=== PATIENT | female | born 1995 | race African-American/Black ===

== ENCOUNTER 2018-11-29 10:34 | Emergency (ER) | payer SELFPAY ==
[2018-11-29 11:12] LABS: Absolute Lymphocytes (CBC) 1.3 K/uL (0.7-4.9); Absolute Monocytes 0.3 K/uL (0.1-1.3); Absolute Neutrophil 5.4 K/uL (1.8-8.0); Basophils % 1.8 % (0-1.3); Eosinophils % 0.1 % (0-4.4); Lymphocytes % 18.2 % (15.3-44.8); MPV 8.7 fL (7.6-11.3); Monocytes % 4.2 % (3.3-12.3); RBC Red Blood Cell Count 4.21 M/uL (3.86-4.86)
[2018-11-29] MEDS ORDERED: NA CHLORIDE 0.9% 1,000 ML ONE ×2 (11:22→13:12)
[2018-11-29 11:28] LABS: ALT/SGPT 15 U/L (12-78); AST/SGOT 14 U/L (15-37); Albumin 4.1 g/dL (3.4-5.0); Alkaline Phosphatase 66 U/L (45-117); BUN Blood Urea Nitrogen 6 mg/dL (7-18); Bicarbonate 22 mmol/L (21-32); Bilirubin Direct 0.1 mg/dL (0-0.2); Bilirubin Total 0.3 mg/dL (0.2-1.0); Glucose Level 96 mg/dL (74-106); Lipase 142 U/L (73-393); Potassium 3.4 mmol/L (3.5-5.1); Protein, Total 7.6 g/dL (6.4-8.2); Sodium Level 144 mmol/L (136-145)
[2018-11-29] MEDS ORDERED: ONDANSETRON 4 MG/2 ML VIAL ONE ×3 (11:50→15:19)
[2018-11-29] MEDS ORDERED: MORPHINE 4 MG/ML SYR ONE ×2 (11:50→13:12)
[2018-11-29] MEDS ORDERED: NS KCL 20MEQ 1,000 ML IV ONE (12:44)
[2018-11-29 12:58] LABS: Urine Blood TRACE (NEG); Urine Glucose NEGATIVE (NEG); Urine Protein 2+ (NEG); Urine Specific Gravity 1.025 (1.005-1.030)
[2018-11-29] MEDS ORDERED: CEFTRIAXONE/SWI 1gm 1 GM/10 ML SYR ONE (13:12)
--- NOTE | 2018-11-29 13:18 | RAD REPORT ---
EXAM DESCRIPTION: CT - Stone Protocol - 11/29/2018 1:05 pm CLINICAL HISTORY: Flank pain. ABD PAIN COMPARISON: No comparisons TECHNIQUE: Axial images were obtained without oral or IV contrast. Lack of contrast limits solid org an and vascular assessment. The [id number] spans the entirety of the system partially obscuring uppermost abdomen and lung bases. Coronal reformatted images were obtained and reviewed. All CT scans are performed using dose optimization technique as appropriate and may include automated exposure control or mA/KV adjustment according to patient size. FINDINGS: The lower lung tao are clear. Imaged portions of the liver and spleen show no suspicious findings on non-contrast imaging. The panc reas and adrenal glands are normal. No pathologic lymphadenopathy in the abdomen or pelvis. 4 mm oblong calculus is noted at the right UVJ resulting mild right hydronephrosis and hydroureter. N o left-sided calculus or hydronephrosis seen. No bowel obstruction, free air, free fluid or abscess. Normal appendix noted. No significant bony abnormality. IMPRESSION: 4 mm oblong calculus right UVJ resulting in mild right hydronephrosis and hydroureter.
--- NOTE | 2018-11-29 13:19 | RAD REPORT ---
EXAM DESCRIPTION: US - Abdomen Exam Limited - 11/29/2018 12:34 pm CLINICAL HISTORY: ABD PAIN COMPARISON: No comparisons FINDINGS: The gallbladder demonstrates no gallstones. No pericholecystic fluid or gallbladder wall t hickening. The common bile duct is normal measuring 3 mm. The liver demonstrates no findings of intrahepatic biliary dilatation. Mild right hydronephrosis inci dentally noted. IMPRESSION: Negative gallbladder/ biliary tree findings. Mild right hydronephrosis.
--- NOTE | 2018-11-29 13:29 | ER ---
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 Transition of care: patient was not received from another setting of care. Onset of symptoms was November 29, 2018. Risk Assessment: Do you want to hurt yourself or someone else? Patient reports no desire to harm self or others. Initial Sepsis Screen: Does the patient meet any 2 criteria? No. Patient's initial sepsis screen is negative. Does the patient have a suspected source of infection? No. Patient's initial sepsis screen is negative. Care prior to arrival: Medication(s) given: zofran 4 mg, Toradol 30 mg. 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 - Social history:: Smoking status: Patient/guardian denies using tobacco. - Ebola Screening: : Patient negative for fever greater than or equal to 101.5 degrees Fahrenheit, and additional compatible Ebola Virus Disease symptoms Patient denies exposure to infectious person Patient denies travel to an Ebola-affected area in the 21 days before illness onset No symptoms or risks identified at this time. - Family history:: not pertinent. Screenin:40 Abuse screen: Denies threats or abuse. Nutritional screening: No deficits noted. aa5 Tuberculosis screening: No symptoms or risk factors identified. Fall Risk None identified. Assessment: 10:42 General: Appears uncomfortable, Behavior is cooperative, restless. Pain: Complains of aa5 pain in right upper quadrant Pain does not radiate. . Pain currently is 10 out of 10 on a pain scale. Quality of pain is described as sharp, Pain began this morning Is continuous. Neuro: Level of Consciousness is awake, alert, obeys commands, Oriented to person, place, time, situation. Cardiovascular: Heart tones S1 S2 present Rhythm is regular. Respiratory: Airway is patent Respiratory effort is even, unlabored, Respiratory pattern is regular, symmetrical. GI: Abdomen is round non-distended, Bowel sounds present X 4 quads. Abd is soft X 4 quads Reports nausea, vomiting, Patient currently denies diarrhea. : No signs and/or symptoms were reported regarding the genitourinary system. Denies burning with urination, inability to void. EENT: No signs and/or symptoms were reported regarding the EENT system. Derm: Skin is dry, Skin is normal, Skin temperature is warm. Musculoskeletal: Range of motion: intact in all extremities. 11:15 Reassessment: Pt assisted to restroom, pt unable to provide urine specimen at this aa5 time. . 11:37 General: Appears uncomfortable. Neuro: Level of Consciousness is awake, alert, obeys aa5 commands, Oriented to person, place, time, situation. Derm: Skin is dry, Skin is normal, Skin temperature is warm. 12:15 Reassessment: Patient and/or family updated on plan of care and expected duration. Pain aa5 level reassessed. Awaiting CT and US. Pt states "I am still hurting". Pt reports pain has improved to 5/10 on a pain scale. . General: Appears comfortable. Neuro: Level of Consciousness is awake, alert, obeys commands, Oriented to person, place, time, situation. Respiratory: Airway is patent Respiratory effort is even, unlabored, Respiratory pattern is regular, symmetrical. Derm: Skin is dry, Skin is normal, Skin temperature is warm. 12:59 Reassessment: Pt taken to CT via wheelchair. . aa5 13:13 Neuro: Level of Consciousness is awake, alert, obeys commands, Oriented to person, aa5 place, time, situation. Respiratory: Airway is patent Respiratory effort is even, unlabored, Respiratory pattern is regular, symmetrical. Derm: Skin is dry, Skin is normal, Skin temperature is warm. 14:15 Reassessment: Patient states symptoms have not improved. Neuro: Level of Consciousness aa5 is awake, alert, obeys commands, Oriented to person, place, time, situation. Respiratory: Airway is patent Respiratory effort is even, unlabored, Respiratory pattern is regular, symmetrical. Derm: Skin is dry, Skin is normal, Skin temperature is warm. 15:05 Reassessment: Pt ambulated to restroom . aa5 15:22 General: Appears uncomfortable. Neuro: Level of Consciousness is awake, alert, obeys aa5 commands, Oriented to person, place, time, situation. Respiratory: Airway is patent Respiratory effort is even, unlabored, Respiratory pattern is regular, symmetrical. Derm: Skin is dry, Skin is normal, Skin temperature is warm. 16:00 Neuro: Level of Consciousness is awake, alert, obeys commands, Oriented to person, aa5 place, time, situation. Respiratory: Airway is patent Respiratory effort is even, unlabored, Respiratory pattern is regular, symmetrical. Derm: Skin is dry, Skin is normal, Skin temperature is warm. 16:00 Reassessment: Patient denies pain at this time. Patient states feeling better. aa5 Vital Signs: 10:40 BP 107 / 76; Pulse 75; Resp 18; Temp 98.3(O); Pulse Ox 100% on R/A; Weight 77.11 kg; em Height 5 ft. 3 in. (160.02 cm); Pain 10/10; 11:37 BP 122 / 98; Pulse 75; Resp 18 S; Pulse Ox 100% on R/A; aa5 13:13 BP 122 / 69; Pulse 77; Resp 16 S; Pulse Ox 98% on R/A; Pain 8/10; aa5 15:20 BP 121 / 66; Pulse 70; Resp 16 S; Pulse Ox 98% on R/A; Pain 10/10; aa5 10:40 Body Mass Index 30.11 (77.11 kg, 160.02 cm) em ED Course: 10:38 Patient arrived in ED. em 10:39 Kalyn Burch, RN is Primary Nurse. aa5 10:39 Triage completed. aa5 10:40 Arm band placed on. em 10:40 Patient has correct armband on for positive identification. Placed in gown. Bed in low aa5 position. Call light in reach. Side rails up X 1. Adult w/ patient. 10:50 Luis Eduardo Friedman MD is Attending Physician. getachew 11:05 Initial lab(s) drawn, by me, sent to lab. Maintain EMS IV. Dressing intact. Good blood aa5 return noted. Site clean \\T\\ dry. Gauge \\T\\ site: 20 G to R AC. 11:34 Radiology exam delayed due to test not completed at this time. az 12:35 US Abdomen Limited In Process Unspecified. EDMS 12:37 Ultrasound completed. Patient tolerated well. Notified ED Physician leonel. sg3 12:39 Initial lab(s) drawn, by me, sent to lab. jp3 12:40 Test, Serum Sent. jp3 12:50 Urine collected: clean catch specimen, clear, ryann colored, Amount Voided: 40mL. jp3 13:06 CT Stone Protocol In Process Unspecified. EDMS 13:08 CT completed. Patient tolerated procedure well. Patient moved back from CT. az 16:00 No provider procedures requiring assistance completed. IV discontinued, intact, aa5 bleeding controlled, No redness/swelling at site. Pressure dressing applied. Administered Medications: 11:37 Drug: NS 0.9% 1000 ml Route: IV; Rate: 1 bolus; Site: right antecubital; aa5 12:30 Follow up: IV Status: Completed infusion; IV Intake: 1000ml aa5 11:37 Drug: Zofran 4 mg Route: IVP; Site: right antecubital; aa5 11:45 Follow up: Response: No adverse reaction aa5 11:39 Drug: morphine 4 mg Route: IVP; Site: right antecubital; aa5 11:45 Follow up: Response: No adverse reaction aa5 13:13 Drug: NS 0.9% with KCl 20 mEq/L 1000 ml Route: IV; Rate: 500 ml/hr; Site: right aa5 antecubital; 14:15 Follow up: IV Status: Completed infusion; IV Intake: 1000ml aa5 13:13 Drug: NS 0.9% 1000 ml Route: IV; Rate: 1 bolus; Site: right antecubital; aa5 14:15 Follow up: IV Status: Completed infusion; IV Intake: 1000ml aa5 13:13 Drug: Zofran 4 mg Route: IVP; Site: right antecubital; aa5 13:20 Follow up: Response: No adverse reaction aa5 13:15 Drug: Rocephin - (cefTRIAXone) 1 grams {Note: administered IVP per pharmacy protocol at aa this time .} Route: IVPB; Infused Over: 30 mins; Site: right antecubital; 13:20 Follow up: Response: No adverse reaction aa5 13:17 Drug: morphine 4 mg Route: IVP; Site: right antecubital; aa5 13:20 Follow up: Response: No adverse reaction aa5 14:15 Drug: LevaQUIN 500 mg Volume: 100 ml; Route: IVPB; Infused Over: 60 mins; Site: right em antecubital; 16:15 Follow up: Response: No adverse reaction; IV Status: Completed infusion aa5 14:15 Drug: Flomax 0.4 mg Route: PO; em 15:15 Follow up: Response: No adverse reaction aa5 15:20 Drug: Zofran 4 mg Route: IVP; Site: right antecubital; aa5 15:45 Follow up: Response: No adverse reaction aa5 15:22 Drug: Dilaudid 1 mg Route: IVP; Site: right antecubital; aa5 15:45 Follow up: Response: No adverse reaction; Marked relief of symptoms; Pain is decreased aa5 Intake: 12:30 IV: 1000ml; Total: 1000ml. aa5 14:15 IV: 1000ml; Total: 2000ml. aa5 14:15 IV: 1000ml; Total: 3000ml. aa5 Outcome: 13:28 Discharge ordered by . [facility] 16:00 Discharged to home ambulatory, with family. [facility] 16:00 Condition: improved 16:00 Discharge instructions given to patient, Instructed on discharge instructions, follow up and referral plans. medication usage, Demonstrated understanding of instructions, follow-up care, medications, Prescriptions given X 4. 16:05 Patient left the ED. aa5 Addendum: 12/02/2018 11:08 Addendum: Culture Results: Positive urine culture. No further action required. Bacteria s s sensitive to prescribed antibiotic. Signatures: Dispatcher [employer] Luis Eduardo Rg MD MD cha Munoz, Edgar, CAN CAPPER CAN CAPPER em Kalyn Burch RN RN aa5 Lety Ritchie RN RN ss Godinez, Sarah 3 Hemant Yang jp3 Amber Weinberg Corrections: (The following items were deleted from the chart) 11/29 11:45 10:42 : No signs and/or symptoms were reported regarding the genitourinary system. aa5aa5
--- NOTE | 2018-11-29 13:29 | EDPHYS ---
Physician Documentation [facility] Name: Aarti Villegas Age: 23 yrs Sex: Female : 1995 Arrival Date: 11/29/2018 Time: 10:38 Bed 13 Private MD: ED Physician Luis Eduardo Friedman HPI: 11/29 11:31 This 23 yrs old Black Female presents to ER via EMS with complaints of Abdominal Pain. getachew 11:31 The patient presents with abdominal pain in the upper abdomen, in the lower abdomen, in getachew the right upper quadrant, right lower quadrant. Onset: The symptoms/episode began/occurred just prior to arrival, this morning. The patient presents to the emergency department with nausea, vomiting, that is continuous. Onset: The symptoms/episode began/occurred just prior to arrival, this morning. Possible causes: unknown. The symptoms are aggravated by nothing. The symptoms are alleviated by nothing. Associated signs and symptoms: The patient has no apparent associated signs or symptoms. 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 - Social history:: Smoking status: Patient/guardian denies using tobacco. - Ebola Screening: : Patient negative for fever greater than or equal to 101.5 degrees Fahrenheit, and additional compatible Ebola Virus Disease symptoms Patient denies exposure to infectious person Patient denies travel to an Ebola-affected area in the 21 days before illness onset No symptoms or risks identified at this time. - Family history:: not pertinent. ROS: 11:31 Constitutional: Negative for fever, chills, and weight loss, Eyes: Negative for injury, getachew pain, redness, and discharge, ENT: Negative for injury, pain, and discharge, Neck: Negative for injury, pain, and swelling, Cardiovascular: Negative for chest pain, palpitations, and edema, Respiratory: Negative for shortness of breath, cough, wheezing, and pleuritic chest pain, Back: Negative for injury and pain, : Negative for injury, bleeding, discharge, and swelling, MS/Extremity: Negative for injury and deformity, Skin: Negative for injury, rash, and discoloration, Neuro: Negative for headache, weakness, numbness, tingling, and seizure, Psych: Negative for depression, anxiety, suicide ideation, homicidal ideation, and hallucinations, Allergy/Immunology: Negative for hives, rash, and allergies, Endocrine: Negative for neck swelling, polydipsia, polyuria, polyphagia, and marked weight changes, Hematologic/Lymphatic: Negative for swollen nodes, abnormal bleeding, and unusual bruising. 11:31 Abdomen/GI: Positive for abdominal pain, abdominal cramps, of the suprapubic area, anterior aspect of right lateral abdomen, right upper quadrant and right lower quadrant. Exam: 11:31 Constitutional: This is a well developed, well nourished patient who is awake, alert, getachew and in no acute distress. Head/Face: Normocephalic, atraumatic. Eyes: Pupils equal round and reactive to light, extra-ocular motions intact. Lids and lashes normal. Conjunctiva and sclera are non-icteric and not injected. Cornea within normal limits. Periorbital areas with no swelling, redness, or edema. ENT: Nares patent. No nasal discharge, no septal abnormalities noted. Tympanic membranes are normal and external auditory canals are clear. Oropharynx with no redness, swelling, or masses, exudates, or evidence of obstruction, uvula midline. Mucous membranes moist. Neck: Trachea midline, no thyromegaly or masses palpated, and no cervical lymphadenopathy. Supple, full range of motion without nuchal rigidity, or vertebral point tenderness. No Meningismus. Chest/axilla: Normal chest wall appearance and motion. Nontender with no deformity. No lesions are appreciated. Cardiovascular: Regular rate and rhythm with a normal S1 and S2. No gallops, murmurs, or rubs. Normal PMI, no JVD. No pulse deficits. Respiratory: Lungs have equal breath sounds bilaterally, clear to auscultation and percussion. No rales, rhonchi or wheezes noted. No increased work of breathing, no retractions or nasal flaring. Back: No spinal tenderness. No costovertebral tenderness. Full range of motion. Female : Normal external genitalia. Skin: Warm, dry with normal turgor. Normal color with no rashes, no lesions, and no evidence of cellulitis. MS/ Extremity: Pulses equal, no cyanosis. Neurovascular intact. Full, normal range of motion. Neuro: Awake and alert, GCS 15, oriented to person, place, time, and situation. Cranial nerves II-XII grossly intact. Motor strength 5/5 in all extremities. Sensory grossly intact. Cerebellar exam normal. Normal gait. Psych: Awake, alert, with orientation to person, place and time. Behavior, mood, and affect are within normal limits. 11:31 Abdomen/GI: Inspection: abdomen appears normal, Bowel sounds: normal, Palpation: moderate abdominal tenderness, in the right upper quadrant and right lower quadrant, Liver: no appreciated palpable abnormalities, Hernia: not appreciated. Vital Signs: 10:40 BP 107 / 76; Pulse 75; Resp 18; Temp 98.3(O); Pulse Ox 100% on R/A; Weight 77.11 kg; em Height 5 ft. 3 in. (160.02 cm); Pain 10/10; 11:37 BP 122 / 98; Pulse 75; Resp 18 S; Pulse Ox 100% on R/A; aa5 13:13 BP 122 / 69; Pulse 77; Resp 16 S; Pulse Ox 98% on R/A; Pain 8/10; aa5 15:20 BP 121 / 66; Pulse 70; Resp 16 S; Pulse Ox 98% on R/A; Pain 10/10; aa5 10:40 Body Mass Index 30.11 (77.11 kg, 160.02 cm) em MDM: 10:51 Patient medically screened. [facility] 11:34 Data reviewed: vital signs, nurses notes, lab test result(s), radiologic studies, CT getachew scan, ultrasound. 11/29 10:54 Order name: Basic Metabolic Panel; Complete Time: 11: [facility] 11/29 10:54 Order name: Basic Metabolic Panel [facility] 11/29 10:54 Order name: CBC with Diff; Complete Time: 11: [facility] 11/29 10:54 Order name: Creatinine for Radiology; Complete Time: 11: [facility] 11/29 10:54 Order name: Hepatic Function; Complete Time: 11: [facility] 11/29 10:54 Order name: Lipase; Complete Time: 11: [facility] 11/29 11:32 Order name: US Abdomen Limited; Complete Time: 13:26 [facility] 11/29 11:32 Order name: CT Stone Protocol; Complete Time: 13: [facility] 11/29 12:11 Order name: Test, Serum; Complete Time: 13:26 [facility] 11/29 12:51 Order name: Urine Culture [facility] 11/29 12:55 Order name: Urine Dipstick--Ancillary (enter results); Complete Time: 13: 11/29 12:55 Order name: Urine --Ancillary (enter results); Complete Time: 13:26 11/29 10:54 Order name: IV Saline Lock; Complete Time: 11: [facility] 11/29 10:54 Order name: Labs collected and sent; Complete Time: 11: [facility] 11/29 10:54 Order name: Urine Dipstick-Ancillary (obtain specimen); Complete Time: 13:09 [facility] 11/29 10:54 Order name: Urine Test (obtain specimen); Complete Time: 13:09 [facility] Administered Medications: 11:37 Drug: NS 0.9% 1000 ml Route: IV; Rate: 1 bolus; Site: right antecubital; aa5 12:30 Follow up: IV Status: Completed infusion; IV Intake: 1000ml aa 11:37 Drug: Zofran 4 mg Route: IVP; Site: right antecubital; aa5 11:45 Follow up: Response: No adverse reaction aa5 11:39 Drug: morphine 4 mg Route: IVP; Site: right antecubital; aa5 11:45 Follow up: Response: No adverse reaction aa5 13:13 Drug: NS 0.9% with KCl 20 mEq/L 1000 ml Route: IV; Rate: 500 ml/hr; Site: right aa5 antecubital; 14:15 Follow up: IV Status: Completed infusion; IV Intake: 1000ml aa5 13:13 Drug: NS 0.9% 1000 ml Route: IV; Rate: 1 bolus; Site: right antecubital; aa5 14:15 Follow up: IV Status: Completed infusion; IV Intake: 1000ml aa5 13:13 Drug: Zofran 4 mg Route: IVP; Site: right antecubital; aa5 13:20 Follow up: Response: No adverse reaction aa5 13:15 Drug: Rocephin - (cefTRIAXone) 1 grams {Note: administered IVP per pharmacy protocol at [facility] this time .} Route: IVPB; Infused Over: 30 mins; Site: right antecubital; 13:20 Follow up: Response: No adverse reaction aa5 13:17 Drug: morphine 4 mg Route: IVP; Site: right antecubital; aa5 13:20 Follow up: Response: No adverse reaction aa5 14:15 Drug: LevaQUIN 500 mg Volume: 100 ml; Route: IVPB; Infused Over: 60 mins; Site: right em antecubital; 16:15 Follow up: Response: No adverse reaction; IV Status: Completed infusion aa5 14:15 Drug: Flomax 0.4 mg Route: PO; em 15:15 Follow up: Response: No adverse reaction aa5 15:20 Drug: Zofran 4 mg Route: IVP; Site: right antecubital; aa5 15:45 Follow up: Response: No adverse reaction aa5 15:22 Drug: Dilaudid 1 mg Route: IVP; Site: right antecubital; aa5 15:45 Follow up: Response: No adverse reaction; Marked relief of symptoms; Pain is decreased aa5 Disposition: 11/29/18 13:28 Discharged to Home. Impression: Urinary tract infection, site not specified, Hydronephrosis with renal and ureteral calculous obstruction - 4 mm uvj. - Condition is Stable. - Discharge Instructions: Dysuria, Kidney Stones, Urinary Tract Infection, Adult, Kidney Stones, [id number], Urinary Tract Infection, Adult, [id number], Hydronephrosis, Dietary Guidelines to Help Prevent Kidney Stones. - Prescriptions for Levaquin 500 mg Oral Tablet - take 1 tablet by ORAL route once daily for 7 days; 7 tablet. Tylenol- Codeine #3 300-30 mg Oral Tablet - take 2 tablet by ORAL route every 6 hours As needed; 30 tablet. Zofran 4 mg Oral Tablet - take 1 tablet by ORAL route every 12 hours As needed; 20 tablet. Flomax 0.4 mg Oral Capsule, Sust. Release 24 hr - take 1 capsule by ORAL route once daily 1/2 hour following the same meal each day; 30 capsule. - Medication Reconciliation Form, Thank You Letter, Antibiotic Education, Prescription Opioid Use form. - Follow up: Private Physician; When: 2 - 3 days; Reason: Recheck today's complaints, Continuance of care, Re-evaluation by your physician. - Problem is new. - Symptoms have improved. Signatures: Dispatcher [employer] Luis Eduardo Rg MD MD cha Munoz, Edgar, CHEMICAL TREATMENT PLANT TECHNICIAN CHEMICAL TREATMENT PLANT TECHNICIAN Kalyn Vu, RN RN aa5 Corrections: (The following items were deleted from the chart) 16:05 13:28 11/29/2018 13:28 Discharged to Home. Impression: Urinary tract infection, site aa5 not specified; Hydronephrosis with renal and ureteral calculous obstruction - 4 mm uvj. Condition is Stable. Forms are Medication Reconciliation Form, Thank You Letter, Antibiotic Education, Prescription Opioid Use. Follow up: Private Physician; When: 2 - 3 days; Reason: Recheck today's complaints, Continuance of care, Re-evaluation by your physician. Problem is new. Symptoms have improved. getachew
[2018-11-29] MEDS ORDERED: Levofloxacin500mg IV 500 MG/100 ML BAG IV ONE (14:20)
[2018-11-29] MEDS ORDERED: TAMSULOSIN 0.4 MG SR CAP ONE (14:20)
[2018-11-29] MEDS ORDERED: HYDROMORPHONE HCL 1 MG/ML INJ ONE (15:19)
== END 2018-11-29 16:05 | disposition home or self-care (01) ==
LOC: ER 10:34
DX: N39.0 Urinary tract infection, site not specified (principal); N13.2 Hydronephrosis with renal and ureteral calculous obstruction
CPT/HCPCS: 36415; 74176; 76377; 76705; 80048; 80076; 81003; 81025; 83690; 84703; 85025; 87077; 87086; 87088; 87186; 96361; 96365; 96366; 96375; 99284; J0696; J1170; J2405; J7030